=== PATIENT | male | born 1975 | race Caucasian/White ===

== ENCOUNTER 2018-03-09 21:45 | Inpatient (IN) | payer OTHER ==
[~2018-03-09] VITALS: Ht 182.9 cm; Wt 90.0 kg
[2018-03-09] MEDS ORDERED: MORPHINE SULFATE 4 MG/ML SYR/VIAL IV ONE ×2 (22:00→23:45)
[2018-03-09] MEDS ORDERED: ONDANSETRON HCL 4 MG/2 ML VIAL IV ONE (22:00)
[2018-03-10] VITALS (8 sets, daily range): BP systolic 98–138; BP diastolic 59–78
[2018-03-10] MEDS ORDERED: ONDANSETRON HCL 4 MG/2 ML VIAL IV PRN (00:15)
[2018-03-10] MEDS ORDERED: HYDROcodone-ACET 5/325MG TAB PO PRN (00:15)
[2018-03-10] MEDS: MEPERIDINE HCL (25 MG/ML) 1ML VIAL IV PRN ×5 (02:11→21:57)
[2018-03-10 03:34] LABS: Urine Bacteria FEW /hpf (None Seen); Urine Blood Negative /uL (Negative); Urine Hyaline Cast FEW /lpf (0 - 2); Urine Mucus FEW (None Seen); Urine Specific Gravity 1.013 (1.001-1.035); Urine WBC 1 /hpf (0 - 3)
[2018-03-10 09:17] LABS: BUN/Creatinine Ratio 11.8; Calcium 8.1 mg/dL (8.5-10.1)
[2018-03-10] MEDS: IBUPROFEN 600 MG TAB PO SCH ×5 (09:27→23:56)
[2018-03-10] MEDS: CLINDAMYCIN 600MG IV 50 ML IV SCH ×2 (09:27→17:07)
[2018-03-10] MEDS: FAMOTIDINE 20 MG TAB PO SCH (10:56)
[2018-03-10] MEDS: LEVOFLOXACIN 500MG 100 ML IV SCH (10:56)
[2018-03-11] MEDS: CLINDAMYCIN 600MG IV 50 ML IV SCH ×3 (01:26→16:44)
[2018-03-11] MEDS ORDERED: OMEP20TA PO (04:33)
[2018-03-11] MEDS ORDERED: ACET-1156 PO (04:33)
[2018-03-11] MEDS ORDERED: ATOR20TA PO (04:36)
[2018-03-11] MEDS ORDERED: ATOR20TA50 PO (04:36)
[2018-03-11 05:00] VITALS: BP 119/71
[2018-03-11] MEDS: MEPERIDINE HCL (25 MG/ML) 1ML VIAL IV PRN ×4 (06:36→17:27)
[2018-03-11 08:00] VITALS: BP 125/61
[2018-03-11 09:00] VITALS: BP 125/61
[2018-03-11] MEDS: LEVOFLOXACIN 500MG 100 ML IV SCH (10:35)
[2018-03-11] MEDS: FAMOTIDINE 20 MG TAB PO SCH (10:35)
[2018-03-11] MEDS: IBUPROFEN 600 MG TAB PO SCH ×2 (12:03→17:17)
[2018-03-11 13:00] VITALS: BP 112/69
[2018-03-11] MEDS ORDERED: IOHEXOL 300 MG/ML 75ml BOTTLE IJ ONE (14:34)
[2018-03-11 17:00] VITALS: BP 123/83
[2018-03-11 18:01] VITALS: BP 126/83
== END 2018-03-11 20:35 | disposition short-term general hospital (02) | DRG 605 ==
LOC: ER 21:45 → OVERFLOW 21:46 → EEVIPCON 21:46 → OVERFLOW 03-10 01:21 → EAST 03-10 01:54
PROVIDERS: ADMIT Specialist; ATTEND Specialist
DX: S80.02XA Contusion of left knee, initial encounter (principal); G89.29 Other chronic pain; M17.10 Unilateral primary osteoarthritis, unspecified knee; M25.462 Effusion, left knee; W18.39XA Other fall on same level, initial encounter; Z82.49 Family history of ischemic heart disease and other diseases of the circulatory system; Z88.0 Allergy status to penicillin; Y93.66 Activity, soccer; Y92.148 Other place in prison as the place of occurrence of the external cause; Y99.8 Other external cause status
CPT/HCPCS: 36415; 73700; 73701; 80048; 81001; 93971; 96374; 96375; 96376; J1956; J2405; J3490; Q9967

== ENCOUNTER 2018-04-07 21:30 | Inpatient (IN) | payer OTHER ==
[~2018-04-07] VITALS: Ht 180.3 cm; Wt 84.5 kg
[~2018-04-07 21:30] MED LIST: ACET-1156 PO; ATOR20TA PO; OMEP20TA PO
[2018-04-07 23:42] LABS: Basophils # (auto) 0.1 uL; Basophils % (auto) 0.6 % (0.0-2.0); Eosinophils # (auto) 0.3 uL; Eosinophils % (auto) 3.3 % (0.0-7.0); Hematocrit 37.5 % (41.0-53.0); Hemoglobin 12.4 g/dL (13.5-17.5); Lymphocytes # (auto) 1.9 uL; Lymphocytes % (auto) 20.1 % (10.0-50.0); Mean Corpuscular Hemoglobin 30.8 pg (28.0-32.0); Mean Corpuscular Hgb Conc. 33.1 g/dL (32.0-36.0); Monocytes # (auto) 0.7 uL; Monocytes % (auto) 7.2 % (0.0-12.0); Neutrophils # (auto) 6.4 uL; Neutrophils % (auto) 68.8 % (37.0-80.0); Nucleated Red Blood Cells % 0.1 %; Platelet Count (auto) 291 10^3/uL (140-450); Red Blood Cells 4.03 10^6/uL (4.5-5.90); Red Cell Distribution Width 12.6 % (11.8-14.3); White Blood Cell 9.2 10^3/uL (4.4-10.8)
[2018-04-08 00:04] LABS: Alanine Aminotransferase 33 U/L (16-61); Albumin 3.7 g/dL (3.4-5.0); Anion Gap 11 (5-15); Aspartate Aminotransferase 27 U/L (15-37); BUN/Creatinine Ratio 12.2; Blood Urea Nitrogen 11 mg/dL (7-18); Calcium 8.4 mg/dL (8.5-10.1); Carbon Dioxide 22 mmol/L (21-32); Chloride 106 mmol/L (98-107); GFR African American 118 mL/min; GFR Non-African American 97 mL/min; Glucose 88 mg/dL (74-106); Sodium 139 mmol/L (136-145)
[2018-04-08 00:06] LABS: Alkaline Phosphatase 72 U/L (45-117); Bilirubin, Total 0.6 mg/dL (0.2-1.0); Total Protein 7.4 g/dL (6.4-8.2)
[2018-04-08 00:09] LABS: Urine Bacteria NONE SEEN /hpf (None Seen); Urine Blood Negative /uL (Negative); Urine Hyaline Cast FEW /lpf (0 - 2); Urine Mucus FEW (None Seen); Urine Specific Gravity 1.021 (1.001-1.035); Urine WBC 1 /hpf (0 - 3)
[2018-04-08] MEDS ORDERED: fentaNYL CITRATE 100 MCG/2 ML VL IV ONE ×2 (00:15→01:00)
[2018-04-08] MEDS ORDERED: VANCOMYCIN 1GM/250ML 250 ML IV ONE (00:15)
[2018-04-08 00:21] LABS: INR 0.95 (0.9-1.15); Partial Thromboplastin Time 30.3 sec (23.78-33.04); Prothrombin Time 10.2 sec (9.27-12.13)
[2018-04-08] MEDS ORDERED: VANCOMYCIN PER PHARMACY 0 MG IV SCH (03:30)
[2018-04-08] MEDS: MORPHINE SULFATE 4 MG/ML SYR/VIAL IV PRN ×4 (06:40→18:57)
[2018-04-08] MEDS ORDERED: ATORVASTATIN 20 MG TAB PO ONE (10:00)
[2018-04-08] MEDS: PANTOPRAZOLE 40 MG TAB PO SCH ×2 (10:40→22:26)
[2018-04-08] MEDS: ENOXAPARIN SOD 80 MG/0.8ML SYRINGE SC SCH ×2 (10:40→22:26)
[2018-04-08] MEDS ORDERED: VANCOMYCIN 1GM/250ML 250 ML IV SCH (12:00)
[2018-04-08] MEDS: VANCOMYCIN 1,250 MG in D5W 5% 250 ML IV SCH ×2 (12:36→23:54)
[2018-04-08 18:05] VITALS: BP 108/65
[2018-04-08 20:00] VITALS: BP 101/78
[2018-04-08 22:00] VITALS: BP 101/78
[2018-04-08] MEDS ORDERED: ENOXAPARIN SOD 100 MG/1 ML SYRINGE SC SCH (22:00)
[2018-04-09] MEDS: MORPHINE SULFATE 4 MG/ML SYR/VIAL IV PRN ×5 (00:17→22:57)
[2018-04-09 04:55] VITALS: BP 81/54
[2018-04-09 08:00] VITALS: BP 123/68
[2018-04-09 09:05] VITALS: BP 123/68
[2018-04-09] MEDS: ENOXAPARIN SOD 80 MG/0.8ML SYRINGE SC SCH (10:33)
[2018-04-09] MEDS: PANTOPRAZOLE 40 MG TAB PO SCH ×2 (10:34→22:00)
[2018-04-09] MEDS: VANCOMYCIN 1,250 MG in D5W 5% 250 ML IV SCH ×2 (11:50→23:39)
[2018-04-09 13:00] VITALS: BP 97/70
[2018-04-09 16:48] VITALS: BP 103/66
[2018-04-09 21:30] VITALS: BP 111/60
[2018-04-10 05:00] VITALS: BP 105/61
[2018-04-10] MEDS: MORPHINE SULFATE 4 MG/ML SYR/VIAL IV PRN ×4 (05:14→20:35)
[2018-04-10 08:00] VITALS: BP 114/69
[2018-04-10 09:00] VITALS: BP 114/69
[2018-04-10] MEDS: PANTOPRAZOLE 40 MG TAB PO SCH ×2 (10:52→20:34)
[2018-04-10] MEDS: ENOXAPARIN SOD 40 MG/0.4 ML SYRINGE SC SCH (10:52)
[2018-04-10] MEDS: VANCOMYCIN 1,250 MG in D5W 5% 250 ML IV SCH (11:08)
[2018-04-10 13:10] VITALS: BP 97/63
[2018-04-10 17:07] VITALS: BP 102/59
[2018-04-10 22:00] VITALS: BP 111/55
[2018-04-11] MEDS: VANCOMYCIN 1,250 MG in D5W 5% 250 ML IV SCH ×3 (00:07→23:54)
[2018-04-11] MEDS: MORPHINE SULFATE 4 MG/ML SYR/VIAL IV PRN ×5 (01:36→20:37)
[2018-04-11 05:00] VITALS: BP 93/61
[2018-04-11 08:45] VITALS: BP 100/61
[2018-04-11] MEDS: PANTOPRAZOLE 40 MG TAB PO SCH ×2 (09:31→20:36)
[2018-04-11] MEDS: ENOXAPARIN SOD 40 MG/0.4 ML SYRINGE SC SCH (09:32)
[2018-04-11 13:00] VITALS: BP 117/71
[2018-04-11 16:49] VITALS: BP 115/58
[2018-04-11 22:00] VITALS: BP 126/76
[2018-04-12 05:15] VITALS: BP 102/60
[2018-04-12] MEDS: MORPHINE SULFATE 4 MG/ML SYR/VIAL IV PRN ×2 (05:20→10:06)
[2018-04-12 06:34] LABS: Basophils # (auto) 0 uL; Basophils % (auto) 0.7 % (0.0-2.0); Eosinophils # (auto) 0.3 uL; Hematocrit 39.4 % (41.0-53.0); Hemoglobin 12.8 g/dL (13.5-17.5); Lymphocytes # (auto) 1.4 uL; Mean Corpuscular Hemoglobin 29.9 pg (28.0-32.0); Mean Corpuscular Hgb Conc. 32.6 g/dL (32.0-36.0); Mean Corpuscular Volume 91.8 fL (80.0-100.0); Monocytes # (auto) 0.6 uL; Monocytes % (auto) 8.6 % (0.0-12.0); Neutrophils # (auto) 4.2 uL; Neutrophils % (auto) 63.7 % (37.0-80.0); Platelet Count (auto) 310 10^3/uL (140-450); Red Blood Cells 4.29 10^6/uL (4.5-5.90); Red Cell Distribution Width 12.4 % (11.8-14.3); White Blood Cell 6.6 10^3/uL (4.4-10.8)
[2018-04-12 07:06] LABS: Albumin 3.4 g/dL (3.4-5.0); BUN/Creatinine Ratio 14.9; Bilirubin, Total 0.3 mg/dL (0.2-1.0); Calcium 8.8 mg/dL (8.5-10.1); Potassium 4.2 mmol/L (3.5-5.1); Total Protein 7.3 g/dL (6.4-8.2)
[2018-04-12 09:00] VITALS: BP 130/70
[2018-04-12] MEDS ORDERED: LEVO500T21 PO (09:05)
[2018-04-12] MEDS ORDERED: VANCOMYCIN 1GM/250ML 250 ML IV ONE (09:15)
[2018-04-12] MEDS: ENOXAPARIN SOD 40 MG/0.4 ML SYRINGE SC SCH (10:06)
[2018-04-12] MEDS: PANTOPRAZOLE 40 MG TAB PO SCH (10:06)
[2018-04-12 10:25] VITALS: BP 130/70
[2018-04-12] MEDS: VANCOMYCIN 1,250 MG in D5W 5% 250 ML IV SCH (12:00)
== END 2018-04-12 13:33 | DRG 863 ==
LOC: ER 21:42 → OVERFLOW 21:43 → EEVIPCON 21:43 → EAST 04-08 18:00
PROVIDERS: ADMIT Internal Medicine; ATTEND Internal Medicine
PROC: 0Y9B3ZZ Drainage of Left Lower Extremity, Percutaneous Approach (ICD-10-PCS; principal; 2018-04-10)
DX: T81.4XXA Infection following a procedure, initial encounter (principal); M23.92 Unspecified internal derangement of left knee; M79.89 Other specified soft tissue disorders; E78.00 Pure hypercholesterolemia, unspecified; B95.8 Unspecified staphylococcus as the cause of diseases classified elsewhere; B95.2 Enterococcus as the cause of diseases classified elsewhere; Y83.8 Other surgical procedures as the cause of abnormal reaction of the patient, or of later complication, without mention of misadventure at the time of the procedure; Y92.89 Other specified places as the place of occurrence of the external cause; Z82.49 Family history of ischemic heart disease and other diseases of the circulatory system; Z86.718 Personal history of other venous thrombosis and embolism
CPT/HCPCS: 10022; 36415; 73562; 73700; 73721; 76942; 80053; 80202; 80320; 81001; 85025; 85610; 85730; 87040; 87077; 87081; 87186; 87205; 93926; 93971; 94761; 96365; 96375; J7060